=== PATIENT | male | born 1975 | race Caucasian/White ===

== ENCOUNTER 2019-01-24 21:23 | Emergency (ER) | payer BC ==
[~2019-01-24] VITALS: Ht 180.3 cm; Wt 83.9 kg
[~2019-01-24 21:23] MED LIST: ANTIVERT25 MG PO; COLACE1 SUP RC; VOLTAREN50 M1 PO; ZOFRAN4 MG PO
[2019-01-24] MEDS ORDERED: MULTIVITAMINS1 EAC5 PO (21:26)
[2019-01-24] MEDS ORDERED: IBU-200200 MG PO (21:26)
[2019-01-24] MEDS ORDERED: VIBRAMYCIN100 MG PO (21:36)
== END 2019-01-24 21:45 | disposition home or self-care (01) ==
LOC: ED 21:23
DX: A26.0 Cutaneous erysipeloid (principal); Z79.899 Other long term (current) drug therapy

== ENCOUNTER → 2021-04-10 | Outpatient (CLI) | payer BC ==
[~2021-04-10] MED LIST changes: +IBU-200200 MG PO; +MULTIVITAMINS1 EAC5 PO; +VIBRAMYCIN100 MG PO
== END | disposition home or self-care (01) ==
LOC: COVID19 16:45
PROVIDERS: ATTEND Internal Medicine
DX: U07.1 COVID-19 (principal)

== ENCOUNTER 2023-06-03 12:05 | Emergency (ER) | payer OTHER ==
[~2023-06-03] VITALS: Ht 180.3 cm; Wt 83.5 kg
[2023-06-03] MEDS ORDERED: SODIUM CHLORIDE 0.9% 1,000 ML IV ONE (12:25)
[2023-06-03 12:43] LABS: BASO % 0.2 % (0.0-1.0); EOS # 0.1 10*3/uL (0.0-0.4); EOS % 1.3 % (1.0-4.0); HEMATOCRIT 52.2 % (42.0-52.0); LYMPH # 0.7 10*3/uL (1.3-4.4); LYMPH % 6.1 % (27.0-41.0); MEAN CELL VOLUME 90.3 fl (80.0-94.0); MEAN CORPUSCULAR HGB 30.6 pg (27.0-31.0); MEAN CORPUSCULAR HGB CONC 33.9 g/dl (33.0-37.0); MEAN PLATELET VOLUME 9.4 fl (9.6-12.3); MONO # 0.4 10*3/uL (0.1-1.0); MONO % 3.4 % (3.0-9.0); NEUT # 9.7 10*3/uL (2.3-7.9); NEUT % 88.7 % (47.0-73.0); PLATELET COUNT AUTOMATED 239 10*3/uL (130-400); RED BLOOD COUNT 5.78 10*6/uL (4.50-5.90); RED CELL DISTRI WIDTH 12.9 % (0-14.5); WHITE BLOOD COUNT 10.9 10*3/uL (4.8-10.8)
[2023-06-03 13:07] LABS: BUN 15 mg/dl (9-23); CHLORIDE 106 mmol/L (98-107); LIPASE 53 U/L (12-53); POTASSIUM 4.3 mmol/L (3.4-5.1)
[2023-06-03 13:08] LABS: ETHYL ALCOHOL < 3.0 mg/dl (<3)
[2023-06-03] MEDS ORDERED: DONEPEZIL HYDROC5 MG PO (13:26)
[2023-06-03] MEDS ORDERED: OXCARBAZEPINE150 MG PO (13:28)
[2023-06-03] MEDS ORDERED: GNC NAC 600600 MG PO (13:29)
[2023-06-03] MEDS ORDERED: GUANFACINE HCL3 MG PO (13:29)
[2023-06-03 14:51] LABS: BILIRUBIN 1+ (Negative); BLOOD Negative (Negative); CLARITY Cloudy (Clear); COLOR Dark Yellow (Yellow); GLUCOSE Negative (Negative); KETONE 1+ (Negative); LEUKO ESTERASE Trace (Negative); NITRITE Negative (Negative); PH 5.5 (4.5-8.0); SPECIFIC GRAVITY >= 1.030 (1.001-1.030)
[2023-06-03 15:10] LABS: URINE AMPHETAMINES Negative (1000ng/ml); URINE BARBITURATES Negative (200ng/ml); URINE BENZODIAZEPINES Negative (200ng/ml); URINE CANNABINOIDS (THC) Negative (50ng/ml); URINE COCAINE Negative (300ng/ml); URINE METHADONE Negative (300ng/ml); URINE OPIATES Negative (300ng/ml); URINE PHENCYCLIDINE Negative (25ng/ml)
[2023-06-03 15:26] LABS: MUCOUS 2+
[2023-06-03 15:27] LABS: BACTERIA 2+
[2023-06-03] MEDS ORDERED: MAGNESIUM CITRATE 296 ML BOT PO ONE (15:40)
[2023-06-03] MEDS ORDERED: CIPRO500 MG PO (15:44)
[2023-06-03] MEDS ORDERED: SENNA-S 8.6-501 EACH PO (15:44)
== END 2023-06-03 15:51 | disposition home or self-care (01) ==
LOC: ED 12:05
PROVIDERS: Internal Medicine
DX: R55 Syncope and collapse (principal); K59.00 Constipation, unspecified; N39.0 Urinary tract infection, site not specified; R11.0 Nausea; M54.2 Cervicalgia; M25.531 Pain in right wrist; Z88.8 Allergy status to other drugs, medicaments and biological substances; Z87.891 Personal history of nicotine dependence

== ENCOUNTER 2023-08-20 19:48 | Inpatient (IN) | payer OTHER ==
[~2023-08-20] VITALS: Ht 175.2 cm; Wt 84.4 kg
[~2023-08-20 19:48] MED LIST changes: +CIPRO500 MG PO; +DONEPEZIL HYDROC5 MG PO; +GNC NAC 600600 MG PO; +GUANFACINE HCL3 MG PO; +OXCARBAZEPINE150 MG PO; +SENNA-S 8.6-501 EACH PO
[2023-08-20 20:09] VITALS: BP 126/78
[2023-08-20 20:54] LABS: BASO % 0.4 % (0.0-1.0); EOS # 0.2 10*3/uL (0.0-0.4); EOS % 2.3 % (1.0-4.0); HEMATOCRIT 42.6 % (42.0-52.0); LYMPH % 29.4 % (27.0-41.0); MEAN CELL VOLUME 88.4 fl (80.0-94.0); MEAN CORPUSCULAR HGB 30.9 pg (27.0-31.0); MEAN PLATELET VOLUME 9.3 fl (9.6-12.3); MONO # 0.6 10*3/uL (0.1-1.0); MONO % 8.4 % (3.0-9.0); NEUT # 4.1 10*3/uL (2.3-7.9); NEUT % 59.4 % (47.0-73.0); PLATELET COUNT AUTOMATED 215 10*3/uL (130-400); RED BLOOD COUNT 4.82 10*6/uL (4.50-5.90); RED CELL DISTRI WIDTH 13.1 % (0-14.5); WHITE BLOOD COUNT 6.9 10*3/uL (4.8-10.8)
[2023-08-20] MEDS ORDERED: ASPIRIN, CHEWABLE 81 MG TAB PO ONE (21:10)
[2023-08-20] MEDS ORDERED: NITROGLYCERIN 0.4 MG BOT SL ONE (21:10)
[2023-08-20 21:14] LABS: ALKALINE PHOSPHATASE 76 U/L (46-116); BUN 10 mg/dl (9-23); CHLORIDE 105 mmol/L (98-107); CPK 59 U/L (34-171); POTASSIUM 3.7 mmol/L (3.4-5.1); SGPT/ALT 19 U/L (5-49); TOTAL PROTEIN 7.1 gm/dL (6.0-8.0)
[2023-08-20 21:18] LABS: ACT PARTIAL THROMBO TIME 27.1 SECONDS (20.0-32.1)
[2023-08-20 22:23] VITALS: BP 120/68
[2023-08-20] MEDS ORDERED: Ondansetron Hydrochloride 4 MG/2 ML VIAL IV PRN (23:15)
[2023-08-20] MEDS ORDERED: BISACODYL 5 MG TAB PO PRN (23:15)
[2023-08-20] MEDS ORDERED: MORPHINE Sulfate 2 MG/ML SYR IV PRN (23:15)
[2023-08-20] MEDS ORDERED: TEMAZEPAM 15 MG CAP PO PRN (23:15)
[2023-08-20] MEDS ORDERED: Acetaminophen/Hydrocodone 5 MG/325 MG TABLET PO PRN (23:15)
[2023-08-20] MEDS ORDERED: Magnesium Hydroxide 30 ML UDC PO PRN (23:15)
[2023-08-20] MEDS ORDERED: BISACODYL 10 MG SUPP R PRN (23:15)
[2023-08-20] MEDS ORDERED: ACETAMINOPHEN 325 MG TAB PO PRN (23:15)
[2023-08-20] MEDS ORDERED: ACETAMINOPHEN 650 MG SUPP R PRN (23:15)
[2023-08-20] MEDS ORDERED: POTASSIUM CHLORIDE 20 MEQ TAB PO ONE (23:55)
[2023-08-21 03:14] VITALS: BP 124/72
[2023-08-21 06:04] VITALS: BP 102/68
[2023-08-21 06:09] VITALS: BP 102/68
[2023-08-21 06:31] LABS: ACT PARTIAL THROMBO TIME 27.8 SECONDS (20.0-32.1)
[2023-08-21 06:38] LABS: BASO % 0.5 % (0.0-1.0); EOS # 0.2 10*3/uL (0.0-0.4); EOS % 3.3 % (1.0-4.0); HEMATOCRIT 42.7 % (42.0-52.0); MEAN CELL VOLUME 88.4 fl (80.0-94.0); MEAN CORPUSCULAR HGB 30.8 pg (27.0-31.0); MEAN CORPUSCULAR HGB CONC 34.9 g/dl (33.0-37.0); MEAN PLATELET VOLUME 9.7 fl (9.6-12.3); MONO # 0.7 10*3/uL (0.1-1.0); MONO % 10.8 % (3.0-9.0); NEUT # 3.2 10*3/uL (2.3-7.9); NEUT % 52.1 % (47.0-73.0); PLATELET COUNT AUTOMATED 218 10*3/uL (130-400); RED BLOOD COUNT 4.83 10*6/uL (4.50-5.90); RED CELL DISTRI WIDTH 13.2 % (0-14.5); WHITE BLOOD COUNT 6.1 10*3/uL (4.8-10.8)
[2023-08-21 06:48] LABS: ALKALINE PHOSPHATASE 67 U/L (46-116); BUN 11 mg/dl (9-23); CHLORIDE 106 mmol/L (98-107); CHOLESTEROL 177 mg/dL (<200); FREE T4 1.14 ng/dl (0.89-1.76); LDL CHOLESTEROL 105 mg/dL (9-159); SGPT/ALT 19 U/L (5-49); TOTAL PROTEIN 6.5 gm/dL (6.0-8.0); TRIGLYCERIDES 166 mg/dl (<150)
[2023-08-21] MEDS ORDERED: Regadenoson 0.4 MG/5 ML SYR IV ONE (06:54)
[2023-08-21 07:16] LABS: VITAMIN D, 25-HYDROXY 79.8 ng/mL (30-100)
[2023-08-21] MEDS ORDERED: Technetium Tc 99M Tetrofosmi 0.23 MG KIT IJ SCH (07:30)
[2023-08-21 08:00] VITALS: BP 106/66
[2023-08-21] MEDS ORDERED: ASPIRIN ENTERIC COATED 81 MG TAB PO SCH (10:00)
[2023-08-21] MEDS ORDERED: Enoxaparin Sodium 40 MG/0.4 ML SYR SC SCH (10:00)
[2023-08-21 12:00] VITALS: BP 116/65
[2023-08-21] MEDS ORDERED: OXCARBAZEPINE150 MG PO ×2 (21:08→21:09)
[2023-08-21] MEDS ORDERED: ACETYLCYSTEINE 6,000 MG/30 ML VIAL PO SCH (22:00)
[2023-08-21] MEDS ORDERED: OXcarbazepine 150 MG TAB PO SCH (22:00)
[2023-08-21] MEDS ORDERED: [UNRECOGNIZED DRUG - OTHER] PO SCH (22:00)
[2023-08-21 22:30] VITALS: BP 140/87
[2023-08-22] MEDS ORDERED: Regadenoson 0.4 MG/5 ML SYR IV ONE (06:38)
[2023-08-22 08:00] VITALS: BP 124/72
[2023-08-22] MEDS ORDERED: Donepezil Hydrochloride 5 MG TAB PO SCH (10:00)
[2023-08-22] MEDS ORDERED: OXcarbazepine 150 MG TAB PO SCH (10:00)
[2023-08-22 12:00] VITALS: BP 109/64
[2023-08-22] MEDS ORDERED: ACETYLCYSTEINE 800 MG/4 ML VIAL PO SCH (22:00)
== END 2023-08-22 14:58 | disposition home or self-care (01) | DRG 313 ==
LOC: ED 19:48 → EDHOLD 22:47 → 4E 08-21 22:03
PROVIDERS: Emergency Medicine; Student in an Organized Health Care Education/Training Program; ADMIT Internal Medicine; ATTEND Internal Medicine
PROC: 4A02XM4 Measurement of Cardiac Total Activity, External Approach (ICD-10-PCS; principal; 2023-08-22)
PROC: 3E073KZ Introduction of Other Diagnostic Substance into Coronary Artery, Percutaneous Approach (ICD-10-PCS; 2023-08-22)
DX: R07.89 Other chest pain (principal); E78.5 Hyperlipidemia, unspecified; R47.81 Slurred speech; K59.04 Chronic idiopathic constipation; R73.9 Hyperglycemia, unspecified; E78.2 Mixed hyperlipidemia; X58.XXXA Exposure to other specified factors, initial encounter; Z82.49 Family history of ischemic heart disease and other diseases of the circulatory system; Z83.3 Family history of diabetes mellitus; S06.9X5S Unspecified intracranial injury with loss of consciousness greater than 24 hours with return to pre-existing conscious level, sequela; Y93.89 Activity, other specified; Y92.89 Other specified places as the place of occurrence of the external cause; Y99.8 Other external cause status